=== PATIENT | male | born 1960 | race Caucasian/White ===

== ENCOUNTER 2021-06-11 12:56 | Emergency (ER) | payer OTHER ==
[2021-06-11] MEDS ORDERED: BEBTELOVIMAB (EUA) 175 MG/2 ML VIAL IVPUSH ONE (13:28)
[2021-06-11 13:40] VITALS: PULSE 64; BMI 27.3
[2021-06-11 16:09] VITALS: BP 112/72; TEMP 99.2
== END 2021-06-11 16:09 | disposition home or self-care (01) ==
LOC: JCOVINFU 12:56 → JER 12:56 → JCOVINFU 16:09
DX: U07.1 COVID-19 (principal)
CPT/HCPCS: 99284-25; M0222; Q0222

== ENCOUNTER 2021-12-12 08:40 | Day surgery (SDC) | payer OTHER ==
[2021-12-08 12:49] VITALS: BMI 27.3
[2021-12-12 09:28] VITALS: RESP 18
[2021-12-12 10:24] VITALS: TEMP 97.7
[2021-12-12 11:17] VITALS: BP 120/60; PULSE 60
== END 2021-12-12 11:12 | disposition home or self-care (01) ==
LOC: FASU-ENDO 08:40
PROVIDERS: ATTEND Internal Medicine Gastroenterology
PROC: 0DBL8ZX Excision of Transverse Colon, Via Natural or Artificial Opening Endoscopic, Diagnostic (ICD-10-PCS; principal; 2021-12-12 10:04)
DX: Z12.11 Encounter for screening for malignant neoplasm of colon (principal); Z83.71 Family history of colonic polyps; D12.2 Benign neoplasm of ascending colon
CPT/HCPCS: 88305-TC